=== PATIENT | male | born 1990 | race African-American/Black ===

== ENCOUNTER 2018-01-13 21:09 | Emergency (ER) | payer OTHER ==
[2018-01-13] MEDS ORDERED: SODIUM CHLORIDE 1,000 ML IV STA (21:33)
[2018-01-13] MEDS ORDERED: CEFAZOLIN 1 GM in DEXTROSE 5%-WATER - 50 ML IVPB ONE (21:33)
[2018-01-13] MEDS ORDERED: DIPHTH,PERTUSS(ACELL),TET 0.5 ML DISP.SYRIN IM ONE (21:33)
[2018-01-13 21:39] LABS: BASO % 0.3 % (0-2.0); EOS % 0.9 % (0-4.5); HEMATOCRIT 47.7 % (35.4-49); LYMPH % 29.5 % (8-40); MCH 31.7 pg (25.7-33.7); MCHC 33.4 g/dl (32.0-35.9); MEAN CELL VOLUME 94.7 fl (80-96); MEAN PLT VOLUME 7.5 fl (7.5-11.1); NEUT % 64.3 % (42.8-82.8); PLATELET COUNT 692 K/MM3 (134-434); RBC 5.04 M/mm3 (4.00-5.60); RDW 13.4 % (11.9-15.9)
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
[2018-01-13 21:46] VITALS: BP 143/85; PULSE 110; BMI 26.9
[2018-01-13] MEDS ORDERED: CEFAZOLIN 1 GM/D5W 1 GM/50 ML BAG ONE (21:48)
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
[2018-01-13 22:23] LABS: PROTHROMBIN TIME (PATIENT) 11.8 SEC (9.7-13.0)
[2018-01-13 22:36] LABS: ALBUMIN 4.5 g/dl (3.4-5.0); ALK PHOS 120 U/L (45-117); ANION GAP 14 MMOL/L (8-16); BILIRUBIN,TOTAL 0.4 mg/dL (0.2-1); BLOOD UREA NITROGEN 13 mg/dL (7-18); CALCIUM 9.1 mg/dL (8.5-10.1); CHLORIDE 109 mmol/L (98-107); CO2 21 mmol/L (21-32); CREATININE 1.4 mg/dL (0.55-1.3); GLUCOSE,RANDOM 108 mg/dL (74-106); POTASSIUM 3.7 mmol/L (3.5-5.1); SGOT/AST 31 U/L (15-37); SGPT/ALT 23 U/L (13-61); SODIUM 143 mmol/L (136-145); TOT PROT 8.5 g/dl (6.4-8.2)
== END 2018-01-13 23:15 | disposition short-term general hospital (02) ==
LOC: JER 21:09
PROC: 3E0234Z Introduction of Serum, Toxoid and Vaccine into Muscle, Percutaneous Approach (ICD-10-PCS; principal; 2018-01-13)
PROC: 0HQ0XZZ Repair Scalp Skin, External Approach (ICD-10-PCS; 2018-01-13)
PROC: 3E03329 Introduction of Other Anti-infective into Peripheral Vein, Percutaneous Approach (ICD-10-PCS; 2018-01-13)
DX: S11.91XA Laceration without foreign body of unspecified part of neck, initial encounter (principal); S01.01XA Laceration without foreign body of scalp, initial encounter; S31.111A Laceration without foreign body of abdominal wall, left upper quadrant without penetration into peritoneal cavity, initial encounter; S21.112A Laceration without foreign body of left front wall of thorax without penetration into thoracic cavity, initial encounter; S41.112A Laceration without foreign body of left upper arm, initial encounter; X99.1XXA Assault by knife, initial encounter; Y93.9 Activity, unspecified; Y92.9 Unspecified place or not applicable; Y99.9 Unspecified external cause status
CPT/HCPCS: 36415; 70498-TC; 71045-TC-FY; 71260-TC; 74177-TC; 80053; 80307; 85025; 85610; 85730; 86850; 86900; 86901; 90715; 99285-25; J7030

== ENCOUNTER 2018-06-04 05:41 | Emergency (ER) | payer OTHER ==
[2018-06-04 05:44] VITALS: BP 124/73; PULSE 109; TEMP 97.7; BMI 28.2
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
--- NOTE | 2018-06-04 11:12 | PDOC ---
*Physical Exam - Vital Signs Last Vital Signs Temp Pulse Resp BP Pulse Ox 97.7 F 109 H 16 124/73 95 06/04/18 05:42 06/04/18 05:42 06/04/18 05:42 06/04/18 05:42 06/04/18 05:42 Medical Decision Making - Medical Decision Making 06/04/18 11:11 Late entry. Patient signed out to me by Dr. Lemus this morning, presented with intoxication. CTH obtained, no ICH. Patient is now awake, alert, and with a steady gait. Stable for DC home. *DC/Admit/Observation/Transfer Diagnosis at time of Disposition: Alcohol intoxication Qualifiers: Complication of substance-induced condition: uncomplicated Qualified Code(s): F10.920 - Alcohol use, unspecified with intoxication, uncomplicated - Discharge Dispostion Disposition: HOME Condition at time of disposition: Stable Decision to Admit order: No - Referrals - Patient Instructions Printed Discharge Instructions: DI for Alcohol Poisoning - Post Discharge Activity
== END 2018-06-04 11:18 | disposition home or self-care (01) ==
LOC: JER 05:41
DX: F10.120 Alcohol abuse with intoxication, uncomplicated (principal); Y90.9 Presence of alcohol in blood, level not specified
CPT/HCPCS: 70450-TC; 99282-25

== ENCOUNTER 2018-08-21 11:25 | Emergency (ER) | payer OTHER | END 2018-08-21 13:09 | disposition home or self-care (01) | LOC: JERFT 11:25 ==